=== PATIENT | female | born 1965 | race Caucasian/White ===

== ENCOUNTER 2017-11-16 09:21 | Emergency (ER) | payer BC ==
--- NOTE | 2017-11-16 10:49 | UC ---
Abdominal Pain Female HPI - HPI Summary HPI Summary: ruq pain worsening over the past 2 weeks, nauseated on/off, last meal 8pm last night - History of Current Complaint Chief Complaint: UCAbdominalPain Stated Complaint: RT SIDE ABD/LOWER BACK PAIN/NAUSEA Time Seen by Provider: 11/16/17 10:42 Hx Obtained From: Patient Hx Last Menstrual Period: 2010 ?: No Onset/Duration: Gradual Onset, Lasting Weeks Timing: Constant Pain Intensity: 6 Pain Scale Used: 0-10 Numeric Location: Discrete At: RUQ Radiates to: Back Character: Colicy, Cramping Aggravating Factor(s): Nothing Alleviating Factor(s): Nothing Associated Signs and Symptoms: Positive: Decreased Appetite, Nausea, Vomiting Allergies/Adverse Reactions: Allergies Allergy/AdvReac Type Severity Reaction Status Date / Time nuts Allergy Anaphylatic Uncoded 11/16/17 09:44 Shock Home Medications: Home Medications Biotin 5 mg PO DAILY 11/16/17 [History Confirmed 11/16/17] Cholecalciferol TAB* [Vitamin D TAB*] 2,000 unit PO DAILY 11/16/17 [History Confirmed 11/16/17] Lisinopril 10 mg PO DAILY 11/16/17 [History Confirmed 11/16/17] Multivitamins/Minerals TAB* [Theragran/minerals TAB*] 1 tab PO DAILY 11/16/17 [ History Confirmed 11/16/17] Naproxen [Naprosyn 500 mg tab] 500 mg PO Q12H PRN 11/16/17 [History Confirmed ] [place]-3 Fatty Acids/Fish Oil [Fish Oil 1,000 mg Capsule] 1 each PO BID 11/16/17 [History Confirmed 11/16/17] Omeprazole CAP* [Prilosec CAP* 20 MG] 40 mg PO DAILY 11/16/17 [History Confirmed 11/16/17] Venlafaxine EXT RELEASE CAP* [Effexor Xr CAP*] 150 mg PO DAILY 11/16/17 [ History Confirmed 11/16/17] PMH/Surg Hx/FS Hx/Imm Hx Previously Healthy: Yes Cardiovascular History: Hypertension GI/ History: Gastroesophageal Reflux Psychological History: Depression - Surgical History Surgical History: None - Family History Known Family History: Positive: None - Social History Occupation: Employed Full-time Lives: With Family Alcohol Use: Occasionally Substance Use Type: None Smoking Status (MU): Heavy Every Day Tobacco Smoker Review of Systems Constitutional: Negative Skin: Negative Eyes: Negative ENT: Negative Respiratory: Negative Cardiovascular: Negative Gastrointestinal: Abdominal Pain - ruq, Vomiting Genitourinary: Negative Motor: Negative Neurovascular: Negative Musculoskeletal: Negative Neurological: Negative Psychological: Negative Is Patient Immunocompromised?: No All Other Systems Reviewed And Are Negative: Yes Physical Exam Triage Information Reviewed: Yes Appearance: Well-Appearing, Well-Nourished, Pain Distress Vital Signs: Initial Vital Signs Temp 99.5 F 11/16/17 09:34 Pulse 88 11/16/17 09:34 Resp 16 11/16/17 09:34 BP 142/98 11/16/17 09:34 Pulse Ox 100 11/16/17 09:34 Vital Signs Reviewed: Yes Eye Exam: Normal Eyes: Positive: Conjunctiva Clear ENT Exam: Normal ENT: Positive: Normal ENT inspection, Hearing grossly normal. Negative: Trismus , Muffled voice, Hoarse voice Dental Exam: Normal Neck exam: Normal Neck: Positive: Supple, Nontender Respiratory Exam: Normal Respiratory: Positive: Chest non-tender, No respiratory distress, No accessory muscle use Cardiovascular Exam: Normal Cardiovascular: Positive: RRR, Pulses Normal, Brisk Capillary Refill Abdominal Exam: Other Abdomen Description: Positive: No Organomegaly, Soft, Other: - positive Conway sign. Negative: CVA Tenderness (R), CVA Tenderness (L), Guarding, Hepatomegaly , McBurney's Point Tenderness, Peritoneal Signs Bowel Sounds: Positive: Present Musculoskeletal Exam: Normal Musculoskeletal: Positive: Strength Intact, ROM Intact Neurological Exam: Normal Neurological: Positive: Alert, Muscle Tone Normal Psychological Exam: Normal Skin Exam: Normal Diagnostics - Radiology No standard instances Xray Interpretation: Positive (See Comments) Radiology Interpretation Completed By: Radiologist - Patient Name: WINNIE MACIEL Medical Record#: [id number] Ordering Physician: Christine Aaron NP Acct.#: [id number] : 1965 Age: 52 Sex: F Location: [facility] Exam Date: 11/16/17 1047 ADM Status: REG ER Order Information: GALL BLADDER Accession Number: [id number] CPT: 83320 Indication: RIGHT upper quadrant pain. Comparison: No relevant prior exams available on the [facility] [place] PACS for comparison. Technique: RIGHT upper quadrant ultrasound. Report: Appropriate direction flow documented in the portal and hepatic veins. 17.1 cm liver is normal in echogenicity. Heterogeneous echogenicity moderately well-circumscribed 6.7 x 6.9 x 5.8 cm RIGHT hepatic lobe mass adjacent to the middle hepatic vein at the dome with intrinsic vascularity on Doppler. Negative for intrahepatic biliary dilatation. 4.8 mm common bile duct. Adequately distended gallbladder with suggestion of multiple tiny 0.1 -- 0.2 cm polyps. 1.5 mm gallbladder wall thickness within normal limits. No visualized gallstones or biliary sludge. Negative for pericholecystic fluid. Negative for sonographic Conway's sign. Unremarkable well visualized pancreas. Negative for ascites. 9.9 x 4.3 x 5.6 cm RIGHT kidney is unremarkable. IMPRESSION: 1. Indeterminant solid 6.7 x 6.9 x 5.8 cm RIGHT hepatic lobe mass with intrinsic vascularity on Doppler. Consider liver mass protocol CT or MRI for further assessment. 2. Suggestion of multiple 0.1 -- 0.2 cm gallbladder wall polyps most consistent with cholesterol or inflammatory polyps. Gallbladder polyps 0.6 cm or smaller have extremely low risk of malignancy and typically do not warrant follow up. On occasion polyps may actually represent small gallstones adherent to the gallbladder wall at surgery. < Electronically signed by Frank Jorge MD in OV> 11/16/17 111 Dictated By: Frank Jorge MD Dictated Date/Time: 11/16/17 111 Transcribed Date/Time: 1114 Copy to: CC:Christine Aaron NP; Bruno Marmolejo MD; Mita Rutherford MD Imaging - [facility] Imaging - [facility] Imaging [facility] [address] [address] ph [phone]) ph ([phone]) ph [phone]) 1 of 2 Abd Pain Female Course/Dx - Course Course Of Treatment: to go to [facility] (patient choice) by private car for further evaluation of right upper quaderant pain - Differential Dx/Diagnosis Provider Diagnoses: Hepatic MAss, elevated blood pressure without diagnosis of hypertension Discharge - Sign-Out/Discharge Documenting (check all that apply): Discharge/Admit/Transfer - Discharge Plan Condition: Stable Disposition: HOME Patient Education Materials: Acute Abdominal Pain (ED), Hypertension (ED) Referrals: Krish SHERWOOD,Mita Degroot [Primary Care Provider] - Additional Instructions: We are discharging you from urgent care to go directly to [facility] emergency department for further assessment of your right upper quaderant pain - Billing Disposition and Condition Condition: STABLE Disposition: HOME
--- NOTE | 2017-11-16 11:22 | RAD ---
Indication: RIGHT upper quadrant pain. Comparison: No relevant prior exams available on the [facility] PACS for comparison. Technique: RIGHT upper quadrant ultrasound. Report: Appropriate direction flow documented in the portal and hepatic veins. 17.1 cm liver is normal in echogenicity. Heterogeneous echogenicity moderately well-circumscribed 6.7 x 6.9 x 5.8 cm RIGHT hepatic lobe mass adjacent to the middle hepatic vein at the dome with intrinsic vascularity on Doppler. Negative for intrahepatic biliary dilatation. 4.8 mm common bile duct. Adequately distended gallbladder with suggestion of multiple tiny 0.1 -- 0.2 cm polyps. 1.5 mm gallbladder wall thickness within normal limits. No visualized gallstones or biliary sludge. Negative for pericholecystic fluid. Negative for sonographic Conway's sign. Unremarkable well visualized pancreas. Negative for ascites. 9.9 x 4.3 x 5.6 cm RIGHT kidney is unremarkable. IMPRESSION: 1. Indeterminant solid 6.7 x 6.9 x 5.8 cm RIGHT hepatic lobe mass with intrinsic vascularity on Doppler. Consider liver mass protocol CT or MRI for further assessment. 2. Suggestion of multiple 0.1 -- 0.2 cm gallbladder wall polyps most consistent with cholesterol or inflammatory polyps. Gallbladder polyps 0.6 cm or smaller have extremely low risk of malignancy and typically do not warrant follow up. On occasion polyps may actually represent small gallstones adherent to the gallbladder wall at surgery.
[2017-11-16 11:50] VITALS: BP 140/89
== END 2017-11-16 11:53 | disposition home or self-care (01) ==
LOC: UCCORT 09:21
DX: R16.0 Hepatomegaly, not elsewhere classified (principal); R03.0 Elevated blood-pressure reading, without diagnosis of hypertension; R10.11 Right upper quadrant pain; I10 Essential (primary) hypertension; K21.9 Gastro-esophageal reflux disease without esophagitis; F17.210 Nicotine dependence, cigarettes, uncomplicated; F32.9 Major depressive disorder, single episode, unspecified; F17.200 Nicotine dependence, unspecified, uncomplicated; Z79.899 Other long term (current) drug therapy; Z91.018 Allergy to other foods
CPT/HCPCS: 76705; 81003; 99202; G0463